=== PATIENT | male | born 1995 | race Caucasian/White ===

== ENCOUNTER 2018-12-08 13:29 | Emergency (ER) | payer SELFPAY ==
--- NOTE | 2018-12-08 14:22 | RAD ---
THREE VIEWS LEFT WRIST: Comparison: None. History: Left wrist pain. FINDINGS: Three views of the left wrist shows no evidence of acute fracture or dislocation. No degenerative albert nges are seen. IMPRESSION: Unremarkable exam. POS: C
== END 2018-12-08 14:10 | disposition home or self-care (01) ==
LOC: NAV ERS 13:29
DX: M25.532 Pain in left wrist (principal); F41.9 Anxiety disorder, unspecified; F17.200 Nicotine dependence, unspecified, uncomplicated
CPT/HCPCS: 29125